=== PATIENT | female | born 1935 ===

== ENCOUNTER 2017-07-01 18:42 | Emergency (ER) | payer MEDICAID, MEDICARE, OTHER ==
--- NOTE | 2017-07-02 00:33 | ER ---
HISTORY OF PRESENT ILLNESS: An 82-year-old lady here with complaints of getting a piece of steak stuck in her throat. [place] staying [place] a camp [place] miles south of [place], they went in to eat prime rib this evening, and part way through her meal is when she noticed that she could not swallow anything anymore and she had a sense of fullness in the lower part of her neck. The patient states this has happened before, and she actually had to have her esophagus dilated on one occasion in the past. The patient has been able to breathe well. She just cannot swallow anything. She comes in with a cup that she is spitting into. OBJECTIVE: GENERAL APPEARANCE: The patient is awake and alert and in no obvious distress. LUNGS: Clear with slightly reduced air exchange throughout the lung [place]. SKIN: Warm and dry. I did have the patient try a sip of water, she could not swallow, she coughed it back up with some white phlegm. DIAGNOSIS: Foreign body in esophagus. TREATMENT PLAN: I offered the patient to try glucagon which would require 1 hour of monitoring to determine if it would be successful. The patient states that she has had problems like this before, and they had to be removed by going in with a scope. At this point, we had a conversation about where she could go to have this done. [place] was the closest facility, [facility], [place]. The patient and her significant other decided to travel to [place]. I did call the [facility] and spoke with their ER doctor, Dr. Raygoza, who confirmed there was a surgeon recreational therapy aide who could remove a foreign body from the esophagus. The patient traveled to [place] by private car with her significant other. CRS/MODL /[id number]
== END 2017-07-01 19:37 ==
LOC: LB.ED 18:42
DX: T18.128A Food in esophagus causing other injury, initial encounter (principal)
CPT/HCPCS: 99283; 99284